=== PATIENT | male | born 1950 | race Caucasian/White ===

== ENCOUNTER → 2016-07-22 | Outpatient (CLI) | payer BC, OTHER ==
[~2016-07-22] MED LIST: ALBUAER2 INH; ASPEC325 PO; CLOP1TAB15 PO; COEN100C3 PO; CRS20 PO; CYAN100T6 PO; FOLI1TAB7 PO; HYDR-4852 PO; ISOS20TA15 PO; KLN1 PO; LEVE500T PO; LISI-461 PO; METO100T14 PO; MIRT30TA2 PO; MULT-506 PO; NCDT7 TOP; RANI1TAB77 PO; SRQ100 PO; SRQ25 PO; THM100 PO
[2016-07-22 18:13] LABS: ALT/SGPT 22 U/L (12-78); AST/SGOT 22 U/L (15-37); BLOOD UREA NITROGEN 10 mg/dl (7-18); CALCIUM 8.9 mg/dl (8.5-10.1); CARBON DIOXIDE 30 mmol/L (21-32); CHLORIDE 102 mmol/L (98-107); GLUCOSE 113 mg/dl (70-99); POTASSIUM 4.5 mmol/L (3.5-5.1); SODIUM 136 mmol/L (136-145)
[2016-07-22 18:16] LABS: CHOLESTEROL 218 mg/dl (0-200); CHOLESTEROL/HDL RATIO 4.8; HDL CHOLESTEROL 45 mg/dl; TRIGLYCERIDES 176 mg/dl (0-150); VERY LOW DENSITY LIPOPROT CALC 35 mg/dl
== END | disposition home or self-care (01) ==
LOC: C.LABMFLN 08:06
PROVIDERS: ATTEND Family Medicine
DX: I25.10 Atherosclerotic heart disease of native coronary artery without angina pectoris (principal); I12.9 Hypertensive chronic kidney disease with stage 1 through stage 4 chronic kidney disease, or unspecified chronic kidney disease; N18.3 Chronic kidney disease, stage 3 (moderate); Z12.11 Encounter for screening for malignant neoplasm of colon

== ENCOUNTER → 2016-11-11 | Outpatient (CLI) | payer OTHER, BC ==
[2016-11-11 18:18] LABS: HEMATOCRIT 42.6 % (42-52); MEAN CELL VOLUME 99.3 fL (80-100); MEAN CORPUSCULAR HGB CONC 34.3 g/dl (32-36); MEAN PLATELET VOLUME 9.9 fL (7.4-10.4); PLATELET COUNT 237 K/uL (130-400); RED BLOOD COUNT 4.29 M/uL (4.7-6.1); WHITE BLOOD COUNT 9.18 K/uL (4.8-10.8)
[2016-11-11 18:27] LABS: BLOOD UREA NITROGEN 10 mg/dl (7-18); BUN/CREATININE RATIO 6.8 (10-20); CALCIUM 8.8 mg/dl (8.5-10.1); CARBON DIOXIDE 27 mmol/L (21-32); CHLORIDE 103 mmol/L (98-107); GLUCOSE 153 mg/dl (70-99); PHOSPHORUS 3.3 mg/dl (2.5-4.9); POTASSIUM 4.4 mmol/L (3.5-5.1); SODIUM 136 mmol/L (136-145)
== END | disposition home or self-care (01) ==
LOC: C.LABMFLN 13:04
PROVIDERS: ATTEND Internal Medicine Nephrology
DX: I12.9 Hypertensive chronic kidney disease with stage 1 through stage 4 chronic kidney disease, or unspecified chronic kidney disease (principal); N18.3 Chronic kidney disease, stage 3 (moderate); I70.1 Atherosclerosis of renal artery; N26.1 Atrophy of kidney (terminal); E55.9 Vitamin D deficiency, unspecified

== ENCOUNTER → 2016-11-12 | Outpatient (CLI) | payer OTHER, BC ==
[2016-11-12 13:23] LABS: URINE APPEARANCE CLEAR (CLEAR); URINE BILIRUBIN NEG (NEG); URINE COLOR YELLOW; URINE EPITHELIAL CELL AUTO 0-5 /lpf (0-5); URINE NITRITE NEG (NEG); URINE PH 6.5 (4.5-7.5); URINE SPECIFIC GRAVITY 1.011 (1.000-1.030); UROBILINOGEN NEG (NEG)
[2016-11-12 13:33] LABS: MANUAL MICROSCOPIC REQUIRED? NO; REVIEW REQ? NO
[2016-11-12 13:45] LABS: URINE TOTAL PROTEIN < 5.0 mg/dl (0-11.9)
== END | disposition home or self-care (01) ==
LOC: C.LABMFLN 09:29
PROVIDERS: ATTEND Internal Medicine Nephrology
DX: I12.9 Hypertensive chronic kidney disease with stage 1 through stage 4 chronic kidney disease, or unspecified chronic kidney disease (principal); N18.3 Chronic kidney disease, stage 3 (moderate); E55.9 Vitamin D deficiency, unspecified; N26.1 Atrophy of kidney (terminal); I70.1 Atherosclerosis of renal artery

== ENCOUNTER → 2017-05-20 | Outpatient (CLI) | payer OTHER, BC ==
[~2017-05-20] MED LIST changes: -FOLI1TAB7 PO; +FOLI1TAB8 PO; +QUET-115 PO; -SRQ100 PO
[2017-05-20 18:04] LABS: HEMATOCRIT 45.2 % (42-52); HEMOGLOBIN 15.1 g/dL (14.0-18.0); MEAN CELL VOLUME 102.3 fL (80-100); MEAN CORPUSCULAR HEMOGLOBIN 34.2 pg (25-34); MEAN CORPUSCULAR HGB CONC 33.4 g/dl (32-36); MEAN PLATELET VOLUME 10.6 fL (7.4-10.4); PLATELET COUNT 247 K/uL (130-400); RED CELL DISTRIBUTION WIDTH SD 52.3 fL (36.4-46.3); WHITE BLOOD COUNT 8.42 K/uL (4.8-10.8)
[2017-05-20 18:11] LABS: ALBUMIN 3.4 gm/dl (3.4-5.0); BLOOD UREA NITROGEN 14 mg/dl (7-18); CALCIUM 8.7 mg/dl (8.5-10.1); CARBON DIOXIDE 30 mmol/L (21-32); GLUCOSE 129 mg/dl (70-99); PHOSPHORUS 3.1 mg/dl (2.5-4.9); SODIUM 135 mmol/L (136-145)
== END | disposition home or self-care (01) ==
LOC: C.LABMFLN 09:58
PROVIDERS: ATTEND Internal Medicine Nephrology
DX: I12.9 Hypertensive chronic kidney disease with stage 1 through stage 4 chronic kidney disease, or unspecified chronic kidney disease (principal); I70.1 Atherosclerosis of renal artery; N18.3 Chronic kidney disease, stage 3 (moderate)

== ENCOUNTER → 2017-08-20 | Outpatient (CLI) | payer OTHER, BC ==
[~2017-08-20] MED LIST changes: +AMLO-110 PO; +ASPI81TA28 PO; +CLON1TAB3 PO; +ERGO500011 PO; +EVOL1.7I SC; +HYDR-5688 PO; +ISOS30TA3 PO; +LEVE750T PO; +LISI-729 PO
--- NOTE | 2017-08-20 12:00 | DIAGNOSTIC IMAGING REPORT ---
CAROTID DOPPLER NECK ART HISTORY: . I65.29 Occlusion and stenosis of unspecified carotid arteryULTR COMPARISON: 11/03/2014 TECHNIQUE: Real-time, grayscale, and color Doppler sonography of the carotid arteries was performed. Imaging reviewed in the transverse and longitudinal planes. All measurements were calculated based on NASCET criteria. FINDINGS: Antegrade flow is seen in the bilateral vertebral arteries. The brachial pressures are hemodynamically similar. Moderate plaque bilaterally The peak systolic velocity within the right ICA is 39. The right systolic ratio is 0.8. The peak systolic velocity within the left ICA is 39. The left systolic ratio is 0.9. IMPRESSION: Moderate plaque formation bilaterally. No significant stenosis. Considerable improvement compared to the prior study post endartectomy. The above report was generated using voice recognition software. It may contain grammatical, syntax or spelling errors. Electronically signed by: Kirk Beltre M.D. 08/20/2017 11:59 AM Dictated Date/Time: 08/20/2017 11:50 AM
--- NOTE | 2017-08-20 12:09 | DIAGNOSTIC IMAGING REPORT ---
CHEST 2 VIEWS ROUTINE CLINICAL HISTORY: K40.90 Inguinal hernia, [id number] Pre-op testing COMPARISON STUDY: 12/15/2014 FINDINGS: The patient appears hyperinflated. The heart is normal in size. There is a left subclavian pacer/defibrillator present. There are postsurgical changes of midline sternotomy. There is no failure. There is no focal pulmonary consolidation. There are no pleural effusions. There are midthoracic compression deformities. IMPRESSION: Hyperinflation. No acute findings. Electronically signed by: Ollie Higgins M.D. 08/20/2017 12:08 PM Dictated Date/Time: 08/20/2017 12:07 PM
[2017-08-20 13:16] LABS: BASO % 0.8 %; BASO ABS # 0.06 K/uL (0-0.2); EOS % 1.4 %; EOS ABS # 0.11 K/uL (0-0.5); HEMATOCRIT 45.9 % (42-52); HEMOGLOBIN 15.4 g/dL (14.0-18.0); IG# 0.03 K/uL (0.00-0.02); LYMPH % 18.5 %; LYMPH ABS # 1.41 K/uL (1.2-3.4); MEAN CELL VOLUME 100.7 fL (80-100); MEAN CORPUSCULAR HEMOGLOBIN 33.8 pg (25-34); MEAN CORPUSCULAR HGB CONC 33.6 g/dl (32-36); MEAN PLATELET VOLUME 9.9 fL (7.4-10.4); MONO % 12.6 %; MONO ABS # 0.96 K/uL (0.11-0.59); NEUT % 66.3 %; NEUT ABS # 5.05 K/uL (1.4-6.5); PLATELET COUNT 274 K/uL (130-400); RED CELL DISTRIBUTION WIDTH CV 14.4 % (11.5-14.5); RED CELL DISTRIBUTION WIDTH SD 53.1 fL (36.4-46.3); WHITE BLOOD COUNT 7.62 K/uL (4.8-10.8)
[2017-08-20 13:32] LABS: BLOOD UREA NITROGEN 14 mg/dl (7-18); CALCIUM 9.3 mg/dl (8.5-10.1); CARBON DIOXIDE 29 mmol/L (21-32); CREATININE 1.39 mg/dl (0.60-1.40); GLUCOSE 84 mg/dl (70-99); POTASSIUM 4.6 mmol/L (3.5-5.1); SODIUM 138 mmol/L (136-145)
== END | disposition home or self-care (01) ==
LOC: C.ULTR 11:08
PROVIDERS: ATTEND Surgery
DX: Z01.818 Encounter for other preprocedural examination (principal); K40.90 Unilateral inguinal hernia, without obstruction or gangrene, not specified as recurrent; Z11.59 Encounter for screening for other viral diseases; I65.23 Occlusion and stenosis of bilateral carotid arteries; R91.8 Other nonspecific abnormal finding of lung field; R00.1 Bradycardia, unspecified; I49.3 Ventricular premature depolarization

== ENCOUNTER 2017-08-25 04:54 | Day surgery (SDC) | payer OTHER, BC ==
[2017-08-21 15:35] VITALS: BMI 18.0
[~2017-08-25] VITALS: Ht 160 cm; Wt 48.0 kg
[~2017-08-25 04:54] MED LIST changes: -ALBUAER2 INH; -ASPEC325 PO; -EVOL1.7I SC; -HYDR-4852 PO; -ISOS20TA15 PO; -KLN1 PO; -LEVE750T PO; -LISI-461 PO; -NCDT7 TOP
[2017-08-25] MEDS ORDERED: SODIUM CHLORIDE 0.9% 1000ML 1,000 ML IV SCH (06:00)
[2017-08-25] MEDS ORDERED: LEVE750T PO (06:06)
[2017-08-25] MEDS ORDERED: EVOL1.7I SC (06:10)
[2017-08-25 06:12] VITALS: BP 157/77; PULSE 53; TEMP 36.6; O2SAT 95; Ht 160 cm; Wt 48.0 kg
--- NOTE | 2017-08-25 06:28 | History & Physical Bridge Note ---
H&P Re-Evaluation Bridge Note: I have examined the patient, reviewed the History & Physical and in the interval since the performance of the History & Physical I have noted the following changes of clinical significance: No changes noted pt marked, all questions answered, SO at bedside
[2017-08-25] MEDS ORDERED: BUPIVACAINE 0.5 % 5 MG/1 ML MPF 30ML VIAL ONE (06:34)
[2017-08-25] MEDS ORDERED: BACITRACIN 50000 UNIT VIAL ONE (06:34)
[2017-08-25] MEDS ORDERED: FENTANYL CITRATE INJ 50 MCG/1 ML 2 ML VIAL ONE (06:50)
[2017-08-25] MEDS ORDERED: PROPOFOL IV EMULSION 10 MG/ML 20 ML VIAL IV ONE (06:50)
[2017-08-25] MEDS ORDERED: LIDOCAINE HCL 2% 2 ML VIAL (20MG/ML) ONE (06:50)
[2017-08-25] MEDS ORDERED: MIDAZOLAM HCL 1 MG/ML 2ML VIAL ONE (06:50)
[2017-08-25] MEDS ORDERED: HYDR-5688 PO (07:13)
[2017-08-25] MEDS ORDERED: DEXAMETHASONE SOD INJ 4 MG/ML VIAL ONE (07:23)
[2017-08-25] MEDS ORDERED: CEFAZOLIN SOD 1 GM VIAL ONE (07:23)
[2017-08-25] MEDS ORDERED: ONDANSETRON INJ 2 MG/ML 2 ML VIAL ONE (07:23)
[2017-08-25] MEDS ORDERED: EpHEDrine SULFATE INJ 50 MG/ML AMP ONE (07:25)
[2017-08-25] MEDS ORDERED: NEOSTIGMINE METHYLSULFATE 5 MG/5 ML SYR ONE (07:48)
[2017-08-25] MEDS ORDERED: GLYCOPYRROLATE INJ 0.2 MG/ML VIAL ONE (07:48)
[2017-08-25] MEDS ORDERED: SURGICEL ABSORB HEMOSTAT 2IN X 14IN TOP ONE (07:51)
--- NOTE | 2017-08-25 07:51 | [facility] Post Operative Brief Note ---
Immediate Operative Summary Operative Date Aug 25, 2017. Pre-Operative Diagnosis Inguinal hernia, right RECURRENT Post-Operative Diagnosis Inguinal hernia, right direct recurrent Procedure(s) Performed Laparoscopic Recurrent Right Inguinal Hernia Repair with Mesh(surgimesh) Surgeon Dr. David Ford Supervising Bailiff Surgeon(s) Rj Reynaga PA-C Estimated Blood Loss 3cc Findings See Below rec direct symph pubis Specimens No pathology specimens per surgeon Anesthesia Type General
[2017-08-25] MEDS ORDERED: LACTATED RINGER'S 1000ML 1,000 ML IV SCH (07:58)
[2017-08-25] MEDS ORDERED: MEPERIDINE HCL 25 MG/ML CARP IV PRN ×2 (08:00→08:45)
[2017-08-25] MEDS ORDERED: KETOROLAC TROMETHAMINE 15 MG/ML VIAL IV. PRN (08:00)
[2017-08-25] MEDS ORDERED: ONDANSETRON INJ 2 MG/ML 2 ML VIAL IV PRN ×2 (08:00→08:45)
--- NOTE | 2017-08-25 08:02 | Discharge Instructions ---
Discharge Instructions Date of Service Aug 25, 2017. Visit Reason for Visit: Recurrent Right Inguinal Hernia Discharge Discharge Diagnosis / Problem: laparoscopic heria repair Discharge Goals Goal(s): Decrease discomfort Activity Recommendations Activity Limitations: as noted below Lifting Limitations: no more than 10 pounds Shower/Bathe: tomorrow Driving or Machine Use: resume 3 days after discharge Anesthesia . Post Anesthesia Instructions: If you have had General Anesthesia or IV Sedation: * Do not drive today. * Resume driving when surgeon permits. * Do not make important decisions or sign legal documents today. * Call surgeon for: 1. Temperature elevations greater than 101 degrees F. 2. Uncontrollable pain. 3. Excessive bleeding. 4. Persistent nausea and vomiting. 5. Medication intolerance (nausea, vomiting or rash). * For nausea and vomiting use only clear liquids such as: tea, soda, bouillon until nausea subsides, then gradually increase diet as tolerated. * If you have any concerns or questions, call your surgeon's office. If physician is unavailable and it is an emergency, call 911 or go to the nearest emergency room. . Instructions / Follow-Up Instructions / Follow-Up Dr. Ford in 1 week,call [phone] if you have any questions or need to schedule an appt You can restart Plavix tomorrow Diet Recommendations Recommended Home Diet: no limitations Procedures Procedures Performed: Laparoscopic Recurrent Right Direct Inguinal Hernia Repair with Mesh(surgimesh) Pending Studies Studies pending at discharge: no Medical Emergencies . Who to Call and When: Medical Emergencies: If at any time you feel your situation is an emergency, please call 911 immediately. . Non-Emergent Contact Non-Emergency issues call your: Surgeon Call Non-Emergent contact if: you have a fever, temperature is above 101.5, your pain is not controlled, wound has increased redness, you have any medication questions . . "Provider Documentation" section prepared by Rj Reynaga. .
--- NOTE | 2017-08-25 08:35 | Anesthesiology Progress Note ---
Anesthesia Post Op Note Date & Time Aug 25, 2017 at 08:35 Vital Signs Pain Intensity: 0 Vital Signs Past 12 Hours Date Time Temp Pulse Resp B/P (MAP) Pulse Ox O2 Delivery O2 Flow Rate FiO2 08/25/17 08:25 44 16 138/81 98 Oxymask 3 08/25/17 08:15 46 16 162/81 100 Oxymask 5 08/25/17 08:08 36.1 51 16 164/85 100 Oxymask 5 08/25/17 06:12 36.6 53 20 157/77 (103) 95 Room Air Notes Mental Status: alert / awake / arousable, participated in evaluation Pt Amnestic to Procedure: Yes Nausea / Vomiting: adequately controlled Pain: adequately controlled Airway Patency, RR, SpO2: stable & adequate BP & HR: stable & adequate Hydration State: stable & adequate Anesthetic Complications: no major complications apparent
[2017-08-25] MEDS ORDERED: LABETALOL HCL IV 5 MG/ML 20ML IV PRN (08:45)
[2017-08-25] MEDS ORDERED: EpHEDrine SULFATE INJ 50 MG/ML AMP IV PRN (08:45)
[2017-08-25] MEDS ORDERED: HYDROmorphone INJ 1 MG/ML SYR IV PRN (08:45)
[2017-08-25] MEDS ORDERED: FENTANYL CITRATE INJ 50 MCG/1 ML 2 ML VIAL IV PRN (08:45)
[2017-08-25] MEDS ORDERED: ATROPINE SULFATE 0.1 MG/ML 5ML SYR IV PRN (08:45)
[2017-08-25 09:05] VITALS: BP 126/60; PULSE 45; TEMP 35.8; O2SAT 96
[2017-08-25] MEDS ORDERED: KETOROLAC TROMETHAMINE 15 MG/ML VIAL ONE (09:28)
[2017-08-25 09:34] VITALS: BP 132/63; PULSE 49; O2SAT 97
[2017-08-25 10:00] VITALS: BP 129/61; PULSE 47; TEMP 35.9; O2SAT 94
--- NOTE | 2017-08-25 10:58 | OPERATIVE REPORT ---
DATE OF OPERATION: 08/25/2017 SURGEON: David Ford M.D. TRUCK AND TRANSPORT MECHANIC: Rj Reynaga PA-C. PREOPERATIVE DIAGNOSIS: Recurrent right inguinal hernia. POSTOPERATIVE DIAGNOSIS: Recurrent right direct inguinal hernia. PROCEDURE: Laparoscopic repair of right direct recurrent inguinal hernia with Surgimesh. SUMMARY: The patient was brought into the operating room theater. A Rojo was not inserted since he had voided right before coming to the operating room. The abdomen was prepped with Betadine scrubbing solution and properly draped. Systemic antibiotics were given. We made a small incision supraumbilically sufficient enough to place a Veress needle followed by CO2 followed by 5 mm trocar. Point of entry inspected and no injury identified. Under direct visualization, we could look at the right lower quadrant and the patient was placed in left lateral position and we could see a dimpling just medial to the inferior epigastric vessels. At this point, under direct visualization, we placed a 5 mm right flank and 5 mm left flank port at the level of the umbilical area lateral to the rectus abdominis. We were able then to incise the peritoneum from the inferior epigastric vessels, the medial umbilical ligament, deep into the retroperitoneal space and were able to see and identify a hernial sac going right at the symphysis pubis as one would expect it. We delivered significant amount of incarcerated fatty tissue into the retroperitoneal area. At this point, once we had delineated the sac and the musculofascial plate, Chris's ligament, conjoined tendon, symphysis pubis and just medial to the inferior epigastric vessels, we then were able to bring a sheet of Marlex mesh, 10 cm. We cut it, so we were about 5 cm in size. The defect itself was approximately about a centimeter or so. We filled the retroperitoneal area with the Surgicel and we brought out the mesh and placed it appropriately, the shiny side towards the abdominal cavity. We tacked to the ProTack circumferentially around the symphysis pubic conjoined tendon superiorly and it was tacked medially. The area appeared satisfactory. We then did not really have a lot of peritoneum to close with, but we left it intact as it is. Individual trocars were taken out under direct visualization, last the umbilical trocar. The patient had a very small incarcerated fatty tissue at the umbilical area that we excised and closed the wounds with 0 Vicryl x2 with the first closure probably involved a very tiny umbilical hernia that we could really barely identified fascial plane, 0 Vicryl [id number]. The procedure was tolerated well by the patient, 4-0 Monocryl subcutaneous, Steri-Strips applied. The patient was taken to recovery room in good condition. Estimated blood loss was approximately 3 mL. I attest to the content of the Intraoperative Record and any orders documented therein. Any exceptions are noted below. KIRSTEND
== END 2017-08-25 10:05 | disposition home or self-care (01) ==
LOC: C.ACU 04:54
PROVIDERS: ATTEND Surgery
DX: K40.91 Unilateral inguinal hernia, without obstruction or gangrene, recurrent (principal); J44.9 Chronic obstructive pulmonary disease, unspecified; I25.10 Atherosclerotic heart disease of native coronary artery without angina pectoris; Z95.1 Presence of aortocoronary bypass graft; I12.9 Hypertensive chronic kidney disease with stage 1 through stage 4 chronic kidney disease, or unspecified chronic kidney disease; N18.3 Chronic kidney disease, stage 3 (moderate); F41.9 Anxiety disorder, unspecified; E78.5 Hyperlipidemia, unspecified; F32.9 Major depressive disorder, single episode, unspecified; Z95.0 Presence of cardiac pacemaker; Z79.899 Other long term (current) drug therapy; Z98.890 Other specified postprocedural states; Z79.82 Long term (current) use of aspirin; Z79.02 Long term (current) use of antithrombotics/antiplatelets; Z91.030 Bee allergy status; Z87.891 Personal history of nicotine dependence